=== PATIENT | male | born 1970 | race Caucasian/White ===

== ENCOUNTER 2019-08-17 16:46 | Emergency (ER) | payer BC ==
--- NOTE | 2019-08-17 17:31 | NUR ---
RECREATION THERAPIST: PT TO ROOM FROM LOBBY IN
--- NOTE | 2019-08-17 17:37 | NUR ---
PT HERE WITH C/O DIZZINESS, HEADACHE, AND LEFT CHEST PAIN. PT STATES "I HAVE A TORN LIGAMENT ON MY LEFT SIDE SO IT HURTS IN MY CHEST AND BACK WHEN I TURN MY HEAD CERTAIN WAYS." PT AAO X 4, NAD, ROOM AIR, CALL LIGHT WITHIN REACH. PT DRESSED IN GOWN AND ATTACHED TO FULL MONITOR. SIDERAIL X [address], AT BEDSIDE.
[2019-08-17] MEDS ORDERED: LISINOPRIL 10 MG TABLET PO ONE (18:30)
[2019-08-17] MEDS ORDERED: LISINOPRIL 10 MG TABLET ONE (18:36)
--- NOTE | 2019-08-17 18:41 | NUR ---
PT MEDICATED PER ORDERS.
--- NOTE | 2019-08-17 18:57 | NUR ---
REPORT GIVEN TO JONATAN WHITLEY. CARE TRANSFERRED AT THIS TIME.
--- NOTE | 2019-08-17 18:58 | NUR ---
report received from amanda vernon.
[2019-08-17 19:38] LABS: BASOPHILS # (AUTO) 0.09 x10^3/uL (0-0.1); BASOPHILS % (AUTO) 1 % (0-1); EOSINOPHILS # (AUTO) 0.19 x10^3/uL (0-0.4); EOSINOPHILS % (AUTO) 2 % (1-7); LYMPHOCYTES # (AUTO) 2.65 x10^3/uL (1-3.4); LYMPHOCYTES % (AUTO) 29 % (22-44); MD NO; MEAN CORPUSCULAR HEMOGLOBIN 30.6 pg (27.5-34.5); MEAN CORPUSCULAR HGB CONC 33.5 g/dL (33.2-36.2); MEAN CORPUSCULAR VOLUME 91.3 fL (81-97); MEAN PLATELET VOLUME 9.7 fL (7.4-10.4); MONOCYTES # (AUTO) 0.59 x10^3/uL (0.2-0.8); MONOCYTES % (AUTO) 6 % (2-9); NEUTROPHILS # (AUTO) 5.65 x10^3/uL (1.8-6.8); NEUTROPHILS % (AUTO) 62 % (42-75); PLATELET COUNT 169 x10^3/uL (130-400); RED BLOOD COUNT 5.32 x10^6/uL (4.38-5.82); RED CELL DISTRIBUTION WIDTH 12.9 % (9.4-14.8)
[2019-08-17 19:41] LABS: ALANINE AMINOTRANSFERASE 65 U/L (12-78); ALBUMIN 3.8 g/dL (3.4-5.0); ANION GAP 6 mmol/L (5-15); CALCIUM 8.9 mg/dL (8.5-10.1); CHLORIDE 106 mmol/L (98-107); CREATININE 1.27 mg/dL (0.7-1.3)
[2019-08-17 19:46] LABS: ALKALINE PHOSPHATASE 98 U/L (45-117); BILIRUBIN,TOTAL 0.4 mg/dL (0.2-1.0); TOTAL PROTEIN 7.3 g/dL (6.4-8.2); TROPONIN I < 0.015 ng/mL (0.000-0.045)
--- NOTE | 2019-08-17 19:48 | NUR ---
PT URINATING IN URINAL AT THIS TIME. PT'S AOX4. RESPS EVEN AND UNLABORED.
[2019-08-17 20:30] VITALS: BP 148/94
--- NOTE | 2019-08-17 21:07 | NUR ---
EDMD AT BEDSIDE TO EXPLAIN ALL RESULTS AT THIS TIME.
--- NOTE | 2019-08-17 21:29 | NUR ---
Patient given discharge instructions and they have confirmed that they understand the instructions. Patient ambulatory with steady gait.
== END 2019-08-17 21:30 | disposition home or self-care (01) ==
LOC: ED 17:58
DX: R51 Headache (principal); I10 Essential (primary) hypertension
CPT/HCPCS: 36415; 71045; 80053; 83880; 84484; 85025; 93005; 99284

== ENCOUNTER 2019-08-18 21:17 | Observation (INO) | payer BC, MEDICAID ==
[~2019-08-18] VITALS: Ht 175.3 cm; Wt 92.1 kg
--- NOTE | 2019-08-18 21:40 | NUR ---
PT C/O LEFT CP AND RUQ ABD PAIN WHEN TAKES A DEEP BREATH. PT SEEN YESTERDAY FOR SAME. CONNECTED TO MONITORING. CALL LIGHT IN REACH. MD AT BEDSIDE FOR ASSESSMENT.
[2019-08-18] MEDS ORDERED: SODIUM CHLORIDE 0.9% 1,000ML IVBOLUS ONE ×2 (22:00→23:00)
--- NOTE | 2019-08-18 22:04 | NUR ---
IV START. LABS DRAWN. PT RESTING ON GURNEY. US AT BEDSIDE.
[2019-08-18 22:21] LABS: BASOPHILS # (AUTO) 0.06 x10^3/uL (0-0.1); BASOPHILS % (AUTO) 1 % (0-1); EOSINOPHILS # (AUTO) 0.16 x10^3/uL (0-0.4); EOSINOPHILS % (AUTO) 2 % (1-7); LYMPHOCYTES # (AUTO) 2.37 x10^3/uL (1-3.4); LYMPHOCYTES % (AUTO) 25 % (22-44); MD NO; MEAN CORPUSCULAR HEMOGLOBIN 31.1 pg (27.5-34.5); MEAN CORPUSCULAR HGB CONC 34.5 g/dL (33.2-36.2); MEAN CORPUSCULAR VOLUME 90.1 fL (81-97); MEAN PLATELET VOLUME 9.9 fL (7.4-10.4); MONOCYTES # (AUTO) 0.57 x10^3/uL (0.2-0.8); MONOCYTES % (AUTO) 6 % (2-9); NEUTROPHILS # (AUTO) 6.33 x10^3/uL (1.8-6.8); NEUTROPHILS % (AUTO) 67 % (42-75); PLATELET COUNT 176 x10^3/uL (130-400); RED BLOOD COUNT 5.47 x10^6/uL (4.38-5.82)
[2019-08-18 22:26] LABS: ALANINE AMINOTRANSFERASE 66 U/L (12-78); ANION GAP 8 mmol/L (5-15); CALCIUM 9.1 mg/dL (8.5-10.1); CHLORIDE 107 mmol/L (98-107); CREATININE 1.32 mg/dL (0.7-1.3)
[2019-08-18 22:30] LABS: ALKALINE PHOSPHATASE 114 U/L (45-117); BILIRUBIN,TOTAL 0.5 mg/dL (0.2-1.0); TOTAL PROTEIN 7.8 g/dL (6.4-8.2); TROPONIN I < 0.015 ng/mL (0.000-0.045)
--- NOTE | 2019-08-18 22:35 | NUR ---
ALL RESULTS ARE BACK AT THIS TIME. CHART UP FOR RECHECK.
--- NOTE | 2019-08-18 22:46 | NUR ---
MD AT BEDSIDE TO UPDATE PT ON POC.
[2019-08-18] MEDS ORDERED: KETOROLAC 30 MG/1 ML ONE (22:59)
[2019-08-18] MEDS ORDERED: METOCLOPRAMIDE 5 MG/ML, 2ML ONE (22:59)
[2019-08-18] MEDS ORDERED: METOCLOPRAMIDE 5 MG/ML, 2ML IVPush ONE (23:00)
[2019-08-18] MEDS ORDERED: KETOROLAC 30 MG/1 ML IVPush ONE (23:00)
[2019-08-18] MEDS: ASPIRIN 325 MG TABLET EC PO SCH (23:01)
--- NOTE | 2019-08-18 23:03 | NUR ---
MEDS ADMIN PER SEP. LITER IVF RUNNING. PT RESTING COMFORTABLY ON GURNEY. NADN. CALL LIGHT IN REACH.
--- NOTE | 2019-08-18 23:18 | NUR ---
NEW ORDERS RECEIVED FOR CT.
--- NOTE | 2019-08-18 23:18 | NUR ---
REPORT GIVEN TO ROSALIE CHEUNG
--- NOTE | 2019-08-18 23:30 | NUR ---
RPT RECEIVED FROM JONATAN GIBBS. ASSUMED CARE OF PT. URINAL PROVIDED TO PT. PT TO CT.
[2019-08-19] VITALS (12 sets, daily range): BP systolic 122–144; BP diastolic 74–90
[2019-08-19] MEDS ORDERED: PROMETHAZINE 25 MG/ML, 1ML IM PRN (01:00)
[2019-08-19] MEDS ORDERED: ONDANSETRON ODT 4 MG PO PRN (01:00)
[2019-08-19] MEDS ORDERED: BISACODYL 10 MG SUPP PR PRN (01:00)
[2019-08-19] MEDS ORDERED: hydrALAzine 20 MG/ML, 1ML IVPush PRN (01:00)
[2019-08-19] MEDS ORDERED: OXYcodone IR 5MG TABLET PO PRN (01:00)
[2019-08-19] MEDS ORDERED: NITROGLYCERIN 0.4 MG BOTTLE (25 TABS) SL PRN (01:00)
[2019-08-19] MEDS ORDERED: POLYETHYLENE GLYCOL 17 GM PACKET PO PRN (01:00)
[2019-08-19] MEDS ORDERED: DOCUSATE 100 MG CAPSULE PO PRN (01:00)
[2019-08-19] MEDS ORDERED: ONDANSETRON 2MG/ML, 2ML IVPush PRN (01:00)
[2019-08-19] MEDS ORDERED: morphine SULFATE 10 MG/ML, 1ML IVPush PRN (01:00)
[2019-08-19] MEDS: SODIUM CHLORIDE 0.9% 1,000 ML IV SCH ×2 (01:28→11:25)
[2019-08-19] MEDS: HEPARIN 5,000 UNITS/ML, 1ML SQ SCH ×3 (01:29→19:53)
[2019-08-19] MEDS: NICOTINE 7 MG/24 HR PATCH.TD24 TD SCH (01:29)
[2019-08-19] MEDS ORDERED: OMEP20TA62 PO (02:16)
[2019-08-19 02:35] LABS: FREE T4 (FREE THYROXINE) 1.26 ng/dL (0.76-1.46)
[2019-08-19 05:30] LABS: TROPONIN I < 0.015 ng/mL (0.000-0.045)
[2019-08-19] MEDS: OMEPRAZOLE 20 MG CAPSULE.DR PO SCH ×2 (06:14→16:33)
[2019-08-19] MEDS ORDERED: REGADENOSON 0.4 MG/5 ML SYRINGE ONE (08:27)
[2019-08-19 08:28] LABS: TROPONIN I < 0.015 ng/mL (0.000-0.045)
[2019-08-19 08:51] LABS: HCT (SEDRATE) 43.7 % (39.2-51.8)
[2019-08-19 15:59] LABS: CLOSTRIDIUM DIFFICILE ANTIGEN NEGATIVE; CLOSTRIDIUM DIFFICILE TOXIN NEGATIVE (Negative)
[2019-08-19] MEDS: KETOROLAC 30 MG/1 ML IVPush SCH ×2 (17:52→22:49)
[2019-08-20] VITALS (7 sets, daily range): BP systolic 120–139; BP diastolic 73–86
[2019-08-20] MEDS ORDERED: LIDODERM REMOVE PATCH NOTE XX ONE
[2019-08-20] MEDS: NICOTINE 7 MG/24 HR PATCH.TD24 TD SCH (00:46)
[2019-08-20] MEDS: HEPARIN 5,000 UNITS/ML, 1ML SQ SCH ×3 (03:32→20:35)
[2019-08-20] MEDS: KETOROLAC 30 MG/1 ML IVPush SCH (05:00)
[2019-08-20 05:29] LABS: CHLORIDE 112 mmol/L (98-107)
[2019-08-20 05:32] LABS: BASOPHILS # (AUTO) 0.07 x10^3/uL (0-0.1); BASOPHILS % (AUTO) 1 % (0-1); EOSINOPHILS % (AUTO) 3 % (1-7); LYMPHOCYTES # (AUTO) 2.34 x10^3/uL (1-3.4); LYMPHOCYTES % (AUTO) 34 % (22-44); MD NO; MEAN CORPUSCULAR HEMOGLOBIN 31.2 pg (27.5-34.5); MEAN CORPUSCULAR HGB CONC 34.2 g/dL (33.2-36.2); MEAN CORPUSCULAR VOLUME 91.1 fL (81-97); MEAN PLATELET VOLUME 9.7 fL (7.4-10.4); MONOCYTES # (AUTO) 0.41 x10^3/uL (0.2-0.8); MONOCYTES % (AUTO) 6 % (2-9); NEUTROPHILS # (AUTO) 3.94 x10^3/uL (1.8-6.8); NEUTROPHILS % (AUTO) 57 % (42-75); PLATELET COUNT 158 x10^3/uL (130-400); RED BLOOD COUNT 4.91 x10^6/uL (4.38-5.82); RED CELL DISTRIBUTION WIDTH 12.9 % (9.4-14.8)
[2019-08-20 05:35] LABS: ALANINE AMINOTRANSFERASE 48 U/L (12-78); ALBUMIN 3.4 g/dL (3.4-5.0); ALKALINE PHOSPHATASE 63 U/L (45-117); ANION GAP 5 mmol/L (5-15); BILIRUBIN,TOTAL 0.5 mg/dL (0.2-1.0); CALCIUM 8.4 mg/dL (8.5-10.1); CHOL/HDL RATIO 7.4; CHOLESTEROL, TOTAL 237 mg/dL (140-239); CREATININE 1.26 mg/dL (0.7-1.3); HDL CHOL % 14 % (26-37); HDL CHOLESTEROL (DIRECT) 32 mg/dL (40-60); LDL CHOLESTEROL,CALCULATED 149 mg/dL (54-169); LDL/HDL RATIO 4.7 (0.5-3.0); TOTAL PROTEIN 6.4 g/dL (6.4-8.2); TRIGLYCERIDES 282 mg/dL (50-200); VLDL CHOLESTEROL 56 mg/dL (0-25)
[2019-08-20] MEDS: ASPIRIN 325 MG TABLET EC PO SCH (05:47)
[2019-08-20] MEDS: OMEPRAZOLE 20 MG CAPSULE.DR PO SCH ×2 (05:47→15:43)
[2019-08-20] MEDS: ACETAMINOPHEN 325 MG TABLET PO PRN ×2 (07:29→17:56)
[2019-08-20] MEDS ORDERED: FENOFIBRATE 145 MG TABLET PO SCH (09:00)
[2019-08-20] MEDS ORDERED: LIDODERM 5% PATCH TD ONE (12:00)
[2019-08-20] MEDS ORDERED: FLUTICASONE NASAL SPRAY 16GM NAS SCH (15:00)
[2019-08-20] MEDS ORDERED: LORATADINE 10 MG TABLET PO SCH (15:00)
[2019-08-20] MEDS: MECLIZINE 25 MG TABLET PO SCH ×3 (15:45→21:56)
[2019-08-20] MEDS ORDERED: ATORVASTATIN 40 MG TABLET PO SCH (21:00)
[2019-08-21 01:46] VITALS: BP 122/84
[2019-08-21] MEDS: NICOTINE 7 MG/24 HR PATCH.TD24 TD SCH (01:57)
[2019-08-21] MEDS: HEPARIN 5,000 UNITS/ML, 1ML SQ SCH ×2 (04:21→13:04)
[2019-08-21] MEDS: ASPIRIN 325 MG TABLET EC PO SCH (05:37)
[2019-08-21] MEDS: OMEPRAZOLE 20 MG CAPSULE.DR PO SCH (05:37)
[2019-08-21 07:32] VITALS: BP 123/78
[2019-08-21] MEDS ORDERED: SINCALIDE (KINEVAC) 5 MCG ONE (08:47)
[2019-08-21] MEDS: MECLIZINE 25 MG TABLET PO SCH (09:00)
[2019-08-21] MEDS ORDERED: FLUT16SP24 NAS (11:54)
[2019-08-21] MEDS ORDERED: ATOR40TA78 PO (11:54)
[2019-08-21] MEDS ORDERED: MECL-101 PO (11:54)
[2019-08-21] MEDS ORDERED: FENO145T19 PO (11:54)
[2019-08-21] MEDS ORDERED: LIDO700A20 TD (12:01)
[2019-08-21 13:16] VITALS: BP 128/87
== END 2019-08-21 14:15 | disposition home or self-care (01) ==
LOC: ED 22:42 → EDIP 08-19 00:28 → INTOOBSV 08-19 00:28 → 5SO 08-19 01:06 → 3N 08-20 17:22 → DCLOUNGE 08-21 14:00
PROVIDERS: ADMIT Internal Medicine; ATTEND Hospitalist
DX: R07.89 Other chest pain (principal); K21.9 Gastro-esophageal reflux disease without esophagitis; R42 Dizziness and giddiness; M77.9 Enthesopathy, unspecified; K62.5 Hemorrhage of anus and rectum; F17.200 Nicotine dependence, unspecified, uncomplicated; I10 Essential (primary) hypertension; R55 Syncope and collapse; R51 Headache; R19.7 Diarrhea, unspecified; N28.9 Disorder of kidney and ureter, unspecified; E86.9 Volume depletion, unspecified; E78.5 Hyperlipidemia, unspecified; K76.0 Fatty (change of) liver, not elsewhere classified
CPT/HCPCS: 36415; 70450; 70551; 71045; 76700; 78227; 78452; 80053; 80061; 83036; 83690; 83735; 84439; 84443; 84484; 85025; 85379; 85651; 87324; 93005; 93017; 93306; 93880; 96361; 96372; 96374; 96375; 96376; 99284; A9502; A9537; G0378; J1644; J1885; J2765; J2785; J2805; J7030